=== PATIENT | female | born 1960 | race Caucasian/White ===

== ENCOUNTER 2017-08-07 17:33 | Emergency (ER) | payer OTHER ==
[2017-08-07] MEDS ORDERED: LIDOCAINE HCL-MPF 1% 2ML VIAL ONE (18:02)
[2017-08-07] MEDS ORDERED: IBUPROFEN 600 MG TABLET ONE (18:02)
[2017-08-07] MEDS ORDERED: CEFAZOLIN SODIUM 1 GM VIAL ONE (18:02)
== END 2017-08-07 19:00 | disposition home or self-care (01) ==
LOC: EDH 17:33
DX: A46 Erysipelas (principal); E11.9 Type 2 diabetes mellitus without complications; Z90.710 Acquired absence of both cervix and uterus
CPT/HCPCS: 82948; 96372; 99283; J0690; J3490